=== PATIENT | female | born 1960 | race Caucasian/White ===

== ENCOUNTER 2018-10-30 22:05 | Emergency (ER) | payer MEDICAID ==
--- NOTE | 2018-10-30 23:13 | EDPHY ---
H & P Time Seen by Provider: 10/30/18 22:37 HPI/ROS: CHIEF COMPLAINT: Left middle digit injury HISTORY OF PRESENT ILLNESS: 58-year-old female arrives via private vehicle with her aunt and sister complaining of acute left middle digit injury which occurred this evening when a basket fell onto her hand. Denies self-injurious behavior her intentional injury. She is complaining of ecchymosis to this area. Denies break in skin. The sister and aunt pulled me aside to speak in private. The 3 of them live together. They are concerned that recently the patient has exhibited for a retic behavior, has been lying more than usual, appears to be more manipulative , has been experiencing insomnia. Per family members, the patient has refused to follow up with primary care provider, as refused follow-up with her therapist. There have been no statements of suicidality or homicidality and they do not think the patient is gravely disabled however they are concerned about her mental health. PRIMARY CARE PROVIDER: REVIEW OF SYSTEMS: A ten point review of systems was performed and is negative with the exception of the items mentioned in the HPI PHYSICAL EXAM (Prior to examination, patient consented to physical exam, hands were washed and my usual and customary physical exam procedures followed) 1) GENERAL: Well-developed, well-nourished, alert and oriented. Smiling. Pleasant. Appears to be in no acute distress. Answering questions appropriately. 2) HEAD: Normocephalic 3) HEENT: Pupils equal, round, reactive to light bilaterally. 4) LUNGS: Breathing comfortably. 5) MUSCULOSKELETAL: Ecchymosis, tenderness to left middle digit proximal middle phalanx. Soft compartments. Normal coloration. Intact skin. 6) SKIN: Intact 7) VASCULAR: pulses and cap refill present are brisk 8) NEUROLOGIC: Radial, ulnar, median nerve function intact with no deficits appreciated on exam DIFFERENTIAL DIAGNOSIS: in no particular order including but not limited to fracture, sprain, compartment syndrome Procedure: Splint A emmanuelle-tape and aluminum foam splint was applied by ER podiatric technician. After application of the splint I returned and re-examined the patient. The splint was adequately immobilizing the joint and distal to the splint the patient's circulation and sensation were intact. Patient shows no signs of compartment syndrome. Was given orthopedic precautions. Smoking Status: Never smoked Constitutional: Initial Vital Signs Temperature (C) 37.2 C 10/30/18 22:14 Heart Rate 99 10/30/18 22:14 Respiratory Rate 18 10/30/18 22:14 Blood Pressure 143/74 H 10/30/18 22:14 O2 Sat (%) 95 10/30/18 22:14 O2 Delivery Mode Room Air Allergies/Adverse Reactions: codeine Allergy (Verified 10/30/18 22:11) Penicillins Allergy (Verified 10/30/18 22:11) Home Medications: Medication Instructions Recorded Advair 100/50 (*) 10/30/18 Albuterol Sulfate 10/30/18 Flonase Allergy Relief 10/30/18 Symbalta 10/30/18 MDM/Departure - MDM Imaging Results: Imaging Impressions Hand X-Ray 10/30/18 22:41 Impression: Negative. No acute fracture. Images reviewed myself ED Course/Re-evaluation: Regarding the patient's left hand injury, x-ray shows no definitive acute osseous abnormality. I have recommended immobilization and follow up with Hand surgery. She is neurovascular intact no evidence of infection or compartment syndrome. Regarding the family's concerns, at this time I do not think the patient meets criteria for an M1 hold. I have definitely encouraged the patient to follow up with both her primary care provider and with her therapist. I have recommend to the family that if at any point they have concerns either further own safety or for the safety the patient or the patient's ability to care for self to contact 911 to discuss this issue with law enforcement. Family feels comfortable with this plan. - Depart Disposition: Home, Routine, Self-Care Clinical Impression: Finger sprain Qualifiers: Encounter type: initial encounter Finger: middle finger Sprain of finger site: interphalangeal joint Laterality: left Qualified Code(s): S63.633A - Sprain of interphalangeal joint of left middle finger, initial encounter Condition: Good Instructions: Noni Hendricks (ED) Additional Instructions: Return to the ER immediately if you experience discoloration, have worsening pain, numbness, tingling, or any other symptoms that concern you. If you received x-rays in the emergency department today, be advised, that ligamentous , tendon, muscular, and other non-bony injury cannot be fully ruled out. Try to keep your affected extremity elevated above the level of your chest, and keep cold packs on the affected area, for the next 48 hours. Referrals: BETH GERBER [Other] - 2-3 days, call for appt. Jackson Bernabe MD [Medical Doctor] - 2-3 days, call for appt.
[2018-10-30 23:24] VITALS: BP 138/78
== END 2018-10-30 23:24 | disposition home or self-care (01) ==
DX: S63.633A Sprain of interphalangeal joint of left middle finger, initial encounter (principal); W20.8XXA Other cause of strike by thrown, projected or falling object, initial encounter; Y99.9 Unspecified external cause status